=== PATIENT | female | born 1945 | race Two or more races ===

== ENCOUNTER 2018-01-31 13:26 | Outpatient (CLI) | payer OTHER | END 2018-01-31 13:28 | disposition home or self-care (01) | LOC: RAD 13:26 | DX: J40 Bronchitis, not specified as acute or chronic (principal) ==

== ENCOUNTER 2020-04-30 07:48 | Outpatient (CLI) | payer OTHER | END 2020-04-30 07:57 | disposition HB | LOC: RX STUDY 07:48 | DX: K44.9 Diaphragmatic hernia without obstruction or gangrene (principal); R10.13 Epigastric pain ==

== ENCOUNTER 2024-08-29 13:49 | Emergency (ER) | payer OTHER ==
[~2024-08-29] VITALS: Ht 167.6 cm; Wt 40.8 kg
[2024-08-29] MEDS ORDERED: IBERSARTAN (15:15)
[2024-08-29] MEDS ORDERED: 0.9 % SODIUM CHLORIDE 1,000 ML IV SCH (16:30)
[2024-08-29 16:35] LABS: BASO % 0.9 % (0.1-1.2); EOS # 0.15 (0.04-0.54); EOS % 3.3 % (0.7-7.0); HEMATOCRIT 32.2 % (34.1-44.9); LYMPH # 0.82 (1.18-3.74); LYMPH % 17.9 % (19.3-53.1); MEAN CORPUSCULAR HEMOGLOBIN 29.6 pg (25.6-32.2); MONO # 0.73 (0.24-0.82); NEUT # 2.82 (1.56-6.13); NEUT % 61.7 % (34.0-71.1); PLATELET COUNT 248 K/uL (163-369); RED BLOOD COUNT 3.72 M/uL (3.93-5.22); RED CELL DISTRIBUTION WIDTH 15.2 % (11.6-14.4)
[2024-08-29 17:11] LABS: ALBUMIN 2.9 gm/dL (3.4-5.0); BILIRUBIN TOTAL 0.45 mg/dL (0.3-1.2); CALCIUM 8.6 mg/dL (8.5-10.1); CREATININE SERUM 0.71 mg/dL (0.55-1.02); GFR 79.61; GLOBULINA 3.9 G/DL (2.4-3.5); POTASSIUM 4.49 mEq/L (3.5-5.1); TOTAL PROTEIN 6.8 gm/dL (6.4-8.2)
[2024-08-29 19:41] LABS: URINE APPEARANCE Clear; URINE BILIRRUBIN Negative (NEGATIVE); URINE BLOOD Large; URINE COLOR Dark Yellow; URINE GLUCOSE Negative (NEGATIVE); URINE KETONE Trace (NEGATIVE); URINE LEUKOCYTE Trace; URINE NITRATE Negative; URINE PROTEIN 30 (NEGATIVE)
[2024-08-29 19:45] LABS: URINE BACTERIA 9.7 uL (0.0-1933); URINE EPITHELIAL CELLS 9.3 uL (0.0-38.8); URINE RBC 836.8 uL (0.0-20.8); URINE WBC 8.3 uL (0.0-23.2)
[2024-08-29 19:50] LABS: URINE CAST 0.29 uL (0.0-1.40)
== END 2024-08-29 20:21 | disposition home or self-care (01) ==
LOC: ER 13:57
PROVIDERS: General Practice
DX: R53.1 Weakness (principal); I10 Essential (primary) hypertension; Z91.018 Allergy to other foods
CPT/HCPCS: 36415; 51702; 70450; 71045; 96365; 96366; 99284; J7030